=== PATIENT | female | born 1980 | race Two or more races ===

== ENCOUNTER 2018-09-10 20:32 | Emergency (ER) | payer OTHER ==
[~2018-09-10] VITALS: Ht 165.1 cm; Wt 59.0 kg
[2018-09-10 20:40] VITALS: BP 121/66
== END 2018-09-10 22:33 | disposition home or self-care (01) ==
LOC: ER 20:39
DX: J40 Bronchitis, not specified as acute or chronic (principal)
CPT/HCPCS: 71045; 84703; 99284; A4606